=== PATIENT | female | born 1950 | race Caucasian/White ===

== ENCOUNTER → 2020-03-12 | Outpatient (CLI) | payer MEDICARE, BC, MEDICAID ==
[2020-03-12 07:58] LABS: BASO # 0.1 (0.02-0.10); EOS # 0.3 (0.04-0.40); HEMATOCRIT 42.9 % (37.0-47.0); HEMOGLOBIN 13.7 g/dL (12.5-16.0); MEAN CELL VOLUME 96 fl (78-100); MEAN CORPUSCULAR HEMOGLOBIN 31 pg (27-31); MEAN CORPUSCULAR HGB CONC 32 g/dL (33-37); MEAN PLATELET VOLUME 11.1 fl (7.4-10.4); NEU # 5.6 (1.40-6.50); PLATELET COUNT 347 K/mm3 (130-400); RED BLOOD COUNT 4.49 M/mm3 (4.10-5.30); RED CELL DISTRIBUTION WIDTH 12.5 % (11.5-14.5); WHITE BLOOD COUNT 16.3 K/mm3 (4.8-10.8)
[2020-03-12 08:22] LABS: LYMPH# 9.3 (1.50-4.00)
[2020-03-12 10:03] LABS: ALBUMIN 4.3 g/dL (3.4-4.8); POTASSIUM 4.5 mmol/L (3.5-5.1)
[2020-03-12 10:04] LABS: CALCIUM 9.6 mg/dL (8.3-10.5)
[2020-03-12 10:05] LABS: TOTAL PROTEIN 6.9 g/dL (6.2-8.1)
[2020-03-12 10:07] LABS: TOTAL BILIRUBIN 0.4 mg/dL (0.2-1.2)
== END ==
LOC: LAB 07:38
PROVIDERS: Physician Assistant
DX: Z76.89 Persons encountering health services in other specified circumstances (principal); E11.9 Type 2 diabetes mellitus without complications; E78.5 Hyperlipidemia, unspecified; I10 Essential (primary) hypertension; H40.9 Unspecified glaucoma; Z83.49 Family history of other endocrine, nutritional and metabolic diseases

== ENCOUNTER → 2020-06-15 | Outpatient (CLI) | payer MEDICARE, BC, MEDICAID ==
[2020-06-15 16:05] LABS: BASO # 0.1 (0.02-0.10); EOS # 0.2 (0.04-0.40); HEMATOCRIT 45.6 % (37.0-47.0); HEMOGLOBIN 14.8 g/dL (12.5-16.0); MEAN CELL VOLUME 97 fl (78-100); MEAN CORPUSCULAR HEMOGLOBIN 32 pg (27-31); MEAN CORPUSCULAR HGB CONC 33 g/dL (33-37); MEAN PLATELET VOLUME 11.5 fl (7.4-10.4); MONO # 1.2 (0.20-0.80); PLATELET COUNT 347 K/mm3 (130-400); RED BLOOD COUNT 4.68 M/mm3 (4.10-5.30); WHITE BLOOD COUNT 18.3 K/mm3 (4.8-10.8)
[2020-06-15 16:09] LABS: POTASSIUM 4.6 mmol/L (3.5-5.1)
[2020-06-15 16:10] LABS: CALCIUM 10.1 mg/dL (8.3-10.5)
[2020-06-15 16:12] LABS: LYMPH# 7.2 (1.50-4.00); NEU # 9.6 (1.40-6.50)
== END ==
LOC: LAB 06-14 09:25
PROVIDERS: Physician Assistant
DX: E11.9 Type 2 diabetes mellitus without complications (principal); D72.829 Elevated white blood cell count, unspecified

== ENCOUNTER → 2020-09-13 | Outpatient (CLI) | payer MEDICARE, BC, MEDICAID ==
[2020-09-13 09:04] LABS: BASO # 0.1 (0.02-0.10); EOS # 0.3 (0.04-0.40); EOS % 1.8 % (1.0-5.0); HEMATOCRIT 44.3 % (37.0-47.0); HEMOGLOBIN 14.4 g/dL (12.5-16.0); MEAN CELL VOLUME 96 fl (78-100); MEAN CORPUSCULAR HEMOGLOBIN 31 pg (27-31); MEAN CORPUSCULAR HGB CONC 33 g/dL (33-37); MEAN PLATELET VOLUME 11.6 fl (7.4-10.4); MONO # 1.1 (0.20-0.80); NEU # 5.3 (1.40-6.50); PLATELET COUNT 305 K/mm3 (130-400); RED CELL DISTRIBUTION WIDTH 13.1 % (11.5-14.5); WHITE BLOOD COUNT 15.2 K/mm3 (4.8-10.8)
[2020-09-13 09:06] LABS: POTASSIUM 4.3 mmol/L (3.5-5.1)
[2020-09-13 09:07] LABS: CALCIUM 9.3 mg/dL (8.3-10.5)
[2020-09-13 09:38] LABS: LYMPH# 8.5 (1.50-4.00)
== END ==
LOC: LAB 08:32
PROVIDERS: Physician Assistant
DX: E11.9 Type 2 diabetes mellitus without complications (principal)

== ENCOUNTER → 2020-09-14 | Outpatient (CLI) | payer MEDICARE, BC, MEDICAID | LOC: RAD 14:19 | DX: M25.511 Pain in right shoulder (principal) ==

== ENCOUNTER → 2020-09-22 | Outpatient (CLI) | payer MEDICARE, BC, MEDICAID | LOC: RAD 12:44 → MAMMO 13:00 → RAD 13:00 | DX: M85.80 Other specified disorders of bone density and structure, unspecified site (principal); M81.0 Age-related osteoporosis without current pathological fracture ==

== ENCOUNTER → 2020-12-14 | Outpatient (CLI) | payer MEDICARE, BC, MEDICAID | LOC: LAB 08:27 | DX: E11.9 Type 2 diabetes mellitus without complications (principal) ==

== ENCOUNTER → 2020-12-28 | Outpatient (CLI) | payer MEDICARE, BC, MEDICAID | LOC: MAMMO 12:55 | DX: Z12.31 Encounter for screening mammogram for malignant neoplasm of breast (principal); N64.89 Other specified disorders of breast ==

== ENCOUNTER → 2021-01-13 | Outpatient (CLI) | payer MEDICARE, BC, MEDICAID | LOC: MAMMO 11:45 | DX: N64.89 Other specified disorders of breast (principal); N60.19 Diffuse cystic mastopathy of unspecified breast ==

== ENCOUNTER → 2021-03-29 | Outpatient (CLI) | payer MEDICARE, BC, MEDICAID ==
[2021-03-29 08:56] LABS: HEMATOCRIT 44.7 % (37.0-47.0); HEMOGLOBIN 14.5 g/dL (12.5-16.0); MEAN CELL VOLUME 97 fl (78-100); MEAN CORPUSCULAR HEMOGLOBIN 32 pg (27-31); MEAN CORPUSCULAR HGB CONC 32 g/dL (33-37); MEAN PLATELET VOLUME 10.6 fl (7.4-10.4); PLATELET COUNT 335 K/mm3 (130-400); RED CELL DISTRIBUTION WIDTH 12.5 % (11.5-14.5); WHITE BLOOD COUNT 17.6 K/mm3 (4.8-10.8)
[2021-03-29 11:26] LABS: LYMPHOCYTE 60 % (20-51); MONOCYTE 5 % (3-10); NEUTROPHILS 33 % (42-75)
== END ==
LOC: LAB 08:32
PROVIDERS: Physician Assistant
DX: E11.9 Type 2 diabetes mellitus without complications (principal); E78.5 Hyperlipidemia, unspecified; I10 Essential (primary) hypertension; Z83.49 Family history of other endocrine, nutritional and metabolic diseases

== ENCOUNTER → 2021-09-27 | Outpatient (CLI) | payer MEDICARE, BC, MEDICAID ==
[2021-09-27 08:24] LABS: POTASSIUM 4.2 mmol/L (3.5-5.1)
[2021-09-27 08:25] LABS: ALBUMIN 4.2 g/dL (3.4-4.8)
[2021-09-27 08:26] LABS: CALCIUM 9.8 mg/dL (8.3-10.5)
[2021-09-27 08:27] LABS: TOTAL PROTEIN 7.1 g/dL (6.2-8.1)
[2021-09-27 08:29] LABS: TOTAL BILIRUBIN 0.5 mg/dL (0.2-1.2)
== END ==
LOC: LAB 07:51
PROVIDERS: Physician Assistant
DX: Z00.00 Encounter for general adult medical examination without abnormal findings (principal); D72.829 Elevated white blood cell count, unspecified; H40.9 Unspecified glaucoma; E78.5 Hyperlipidemia, unspecified; I10 Essential (primary) hypertension; M85.80 Other specified disorders of bone density and structure, unspecified site; E11.9 Type 2 diabetes mellitus without complications; F17.200 Nicotine dependence, unspecified, uncomplicated; Z83.49 Family history of other endocrine, nutritional and metabolic diseases

== ENCOUNTER → 2021-09-28 | Outpatient (CLI) | payer MEDICARE, BC, MEDICAID | LOC: LAB 13:48 | DX: Z00.00 Encounter for general adult medical examination without abnormal findings (principal); E11.9 Type 2 diabetes mellitus without complications; D72.829 Elevated white blood cell count, unspecified; I10 Essential (primary) hypertension; H40.9 Unspecified glaucoma; E78.5 Hyperlipidemia, unspecified; M85.80 Other specified disorders of bone density and structure, unspecified site; F17.200 Nicotine dependence, unspecified, uncomplicated; Z83.49 Family history of other endocrine, nutritional and metabolic diseases ==

== ENCOUNTER → 2022-06-27 | Outpatient (CLI) | payer MEDICARE, BC, MEDICAID | LOC: RAD 10:15 | DX: G31.1 Senile degeneration of brain, not elsewhere classified (principal) ==

== ENCOUNTER → 2024-03-27 | Outpatient (CLI) | payer MEDICARE, BC, MEDICAID | LOC: LAB 08:04 | DX: E11.9 Type 2 diabetes mellitus without complications (principal) ==